=== PATIENT | male | born 1960 | race Caucasian/White ===

== ENCOUNTER 2021-11-08 07:51 | Emergency (ER) | payer BC ==
[2021-11-08] MEDS: Ondansetron 4 MG/2 ML SDV IVPUSH ONE (08:05)
[2021-11-08] MEDS: Ketorolac 30 MG/ML SDV IVPUSH ONE (08:07)
[2021-11-08] MEDS: Sodium Chloride 0.9% 500 ML IV ONE (08:26)
[2021-11-08 08:33] LABS: ANION GAP 13.4 mmol/L (5-15); CHLORIDE,CL 101 mmol/L (98-107); SODIUM,NA 137 mmol/L (136-145)
== END 2021-11-08 09:46 | disposition home or self-care (01) ==
LOC: VM.ED 07:51
DX: R10.83 Colic (principal); N20.0 Calculus of kidney; Z79.899 Other long term (current) drug therapy; Z79.82 Long term (current) use of aspirin
CPT/HCPCS: 36415; 74176; 80048; 81001; 85025; 96374; 96375; 99284; J1885; J2405; J7030

== ENCOUNTER 2021-11-10 00:13 | Emergency (ER) | payer BC ==
[2021-11-10] MEDS ORDERED: Ketorolac 30 MG/ML SDV IM ONE (00:24)
[2021-11-10] MEDS ORDERED: Promethazine 12.5 MG in Sodium Chloride 0.9% 100 ML IV ONE (00:25)
[2021-11-10] MEDS ORDERED: Take Home: Acetaminophen/oxyCODONE 325-5 MG, 5 Tab Pack PO ONE (00:25)
[2021-11-10] MEDS ORDERED: Take Home: Ondansetron 4 MG Tab.DIS, 5 Tab Pack PO ONE (00:26)
== END 2021-11-10 01:00 | disposition home or self-care (01) ==
LOC: VM.ED 00:13
DX: R10.83 Colic (principal); N20.2 Calculus of kidney with calculus of ureter; I10 Essential (primary) hypertension; Z79.899 Other long term (current) drug therapy; Z79.82 Long term (current) use of aspirin
CPT/HCPCS: 96372; 96374; 99283; A9270; J1885; J2550; J3490; Q0162

== ENCOUNTER 2022-11-25 07:35 | Inpatient (IN) | payer BC ==
[2022-11-25] MEDS ORDERED: GI Cocktail Oral Solution 30 ML PO ONE (08:09)
[2022-11-25 08:15] LABS: BASOPHILS PERCENT AUTO 0.2 % (0.2-1.2); EOSINOPHILS ABSOLUTE AUTO 0.1 x10^3/uL (0.0-0.5); EOSINOPHILS PERCENT AUTO 0.8 % (0.0-4.0); HEMATOCRIT 52.5 % (40.0-52.0); HEMOGLOBIN 18.4 g/dL (14.0-18.0); IMMATURE GRAN ABSOLUTE AUTO 0.07 x10^3/uL (0.00-0.07); LYMPHOCYTES ABSOLUTE AUTO 1.4 x10^3/uL (1.0-4.8); LYMPHOCYTES PERCENT AUTO 11.6 % (25.0-50.0); MEAN CORPUSCULAR HEMOGLOBIN 29.2 pg (26.0-32.0); MEAN CORPUSCULAR VOLUME 83.3 fL (78.0-93.0); MONOCYTES ABSOLUTE AUTO 1.1 x10^3/uL (0.0-0.8); MONOCYTES PERCENT AUTO 8.6 % (2.0-11.0); NEUTROPHILS ABSOLUTE AUTO 9.5 x10^3/uL (1.8-7.7); NEUTROPHILS PERCENT AUTO 78.2 % (50.0-80.0); PLATELET COUNT,PLT 287 x10^3/uL (130-400); WHITE BLOOD CELL COUNT,WBC 12.2 x10^3/uL (4.0-10.0)
[2022-11-25 08:25] LABS: A/G RATIO 1.08; BILIRUBIN TOTAL 1.4 mg/dL (0.2-1.0); C-REACTIVE PROTEIN 5.9 mg/dL (<=0.9); CALCIUM 9.5 mg/dL (8.5-10.1); CREATININE 1.1 mg/dL (0.70-1.30); EST CRCL DRUG DOSING (CG) 69.63 mL/min; POTASSIUM,K 4.3 mmol/L (3.5-5.1); PROTEIN TOTAL,TP 7.7 g/dL (6.4-8.2)
[2022-11-25 08:26] LABS: ANION GAP 13.3 mmol/L (5-15)
[2022-11-25] MEDS ORDERED: Iopamidol 612 MG/ML 100 ML Bottle IVPUSH ONE (08:59)
[2022-11-25 09:02] LABS: APPEARANCE,URINE CLEAR (CLEAR); BILIRUBIN,URINE NEGATIVE (NEGATIVE); COLOR,URINE DARK YELLOW (YELLOW); GLUCOSE,URINE NEGATIVE (NEGATIVE); KETONES,URINE NEGATIVE (NEGATIVE); LEUKOCYTE ESTERASE,URINE NEGATIVE (NEGATIVE); NITRITE,URINE NEGATIVE (NEGATIVE); OCCULT BLOOD,URINE TRACE-INTACT (NEGATIVE); PROTEIN,URINE TRACE mg/dL (NEGATIVE)
[2022-11-25 09:14] LABS: BACTERIA,URINE RARE /HPF (NOT SEEN); MUCUS,URINE OCCASIONAL /LPF (NOT SEEN); RBC,URINE 0-5 /HPF (NOT SEEN); WBC,URINE 0-5 /HPF (NOT SEEN)
[2022-11-25] MEDS ORDERED: HYDROmorphone 1 MG/ML Syringe IVPUSH ONE (10:21)
[2022-11-25] MEDS ORDERED: Ondansetron 4 MG/2 ML SDV IV PRN (10:23)
[2022-11-25] MEDS ORDERED: Sodium Chloride 0.9% 10 ML Syringe FLUSH PRN (10:23)
[2022-11-25] MEDS: Sodium Chloride 0.9% 1,000 ML IV SCH ×2 (11:28→20:51)
[2022-11-25] MEDS: Pantoprazole 40 MG Vial IVPUSH SCH (11:30)
[2022-11-25] MEDS: Lisinopril 20 MG Tab PO SCH (12:12)
[2022-11-25] MEDS: Loratadine 10 MG Tab PO SCH (12:12)
[2022-11-25] MEDS: Multivitamin Tab PO SCH (12:12)
[2022-11-25] MEDS: Hydrochlorothiazide 25 MG Tab PO SCH (12:12)
[2022-11-25] MEDS: Fluticasone Propionate Nasal Spray 9.9 ML BOTTLE NAS SCH (12:13)
[2022-11-25] MEDS: Aspirin 81 MG Tab.EC PO SCH (12:13)
[2022-11-25] MEDS: HYDROmorphone 1 MG/ML Syringe IVPUSH PRN ×2 (14:55→21:09)
[2022-11-26] MEDS: Sodium Chloride 0.9% 1,000 ML IV SCH (03:50)
[2022-11-26 05:07] LABS: % TRANSFERRIN SAT 9.6 % (20.0-50.0)
[2022-11-26 08:01] LABS: BASOPHILS PERCENT AUTO 0.3 % (0.2-1.2); EOSINOPHILS ABSOLUTE AUTO 0.1 x10^3/uL (0.0-0.5); EOSINOPHILS PERCENT AUTO 1.3 % (0.0-4.0); HEMATOCRIT 49.4 % (40.0-52.0); HEMOGLOBIN 17.3 g/dL (14.0-18.0); IMMATURE GRAN ABSOLUTE AUTO 0.06 x10^3/uL (0.00-0.07); LYMPHOCYTES ABSOLUTE AUTO 1.4 x10^3/uL (1.0-4.8); LYMPHOCYTES PERCENT AUTO 13.5 % (25.0-50.0); MEAN CORPUSCULAR HEMOGLOBIN 29.4 pg (26.0-32.0); MONOCYTES PERCENT AUTO 9.6 % (2.0-11.0); NEUTROPHILS ABSOLUTE AUTO 7.8 x10^3/uL (1.8-7.7); NEUTROPHILS PERCENT AUTO 74.7 % (50.0-80.0); PLATELET COUNT,PLT 244 x10^3/uL (130-400); RED BLOOD CELL COUNT 5.88 x10^6/uL (4.5-6.0); WHITE BLOOD CELL COUNT,WBC 10.4 x10^3/uL (4.0-10.0)
[2022-11-26 08:18] LABS: A/G RATIO 0.92; ALBUMIN 3.3 g/dL (3.4-5.0); BILIRUBIN TOTAL 1.4 mg/dL (0.2-1.0); CALCIUM 9.2 mg/dL (8.5-10.1); CREATININE 0.9 mg/dL (0.70-1.30); EST CRCL DRUG DOSING (CG) 85.1 mL/min; POTASSIUM,K 4.5 mmol/L (3.5-5.1); PROTEIN TOTAL,TP 6.9 g/dL (6.4-8.2)
[2022-11-26 08:29] LABS: ANION GAP 13.5 mmol/L (5-15)
[2022-11-26] MEDS: Pantoprazole 40 MG Vial IVPUSH SCH (09:30)
[2022-11-26] MEDS: Aspirin 81 MG Tab.EC PO SCH (09:31)
[2022-11-26] MEDS: Loratadine 10 MG Tab PO SCH (09:31)
[2022-11-26] MEDS: Lisinopril 20 MG Tab PO SCH (09:31)
[2022-11-26] MEDS: Multivitamin Tab PO SCH (09:31)
[2022-11-26] MEDS: Fluticasone Propionate Nasal Spray 9.9 ML BOTTLE NAS SCH (09:31)
[2022-11-26] MEDS: Hydrochlorothiazide 25 MG Tab PO SCH (09:31)
== END 2022-11-26 11:45 | disposition home or self-care (01) | DRG 282 ==
LOC: VM.ED 07:35 → SUPCPDRO 07:35 → VM.MS 09:59
PROVIDERS: ADMIT Nurse Practitioner Family; ATTEND Nurse Practitioner Family
DX: K85.90 Acute pancreatitis without necrosis or infection, unspecified (principal); E86.0 Dehydration; E78.5 Hyperlipidemia, unspecified; K21.9 Gastro-esophageal reflux disease without esophagitis; E29.1 Testicular hypofunction; D75.1 Secondary polycythemia; H91.90 Unspecified hearing loss, unspecified ear; E78.00 Pure hypercholesterolemia, unspecified; E66.9 Obesity, unspecified; Z87.442 Personal history of urinary calculi; Z98.890 Other specified postprocedural states; Z79.82 Long term (current) use of aspirin; Z68.31 Body mass index [BMI] 31.0-31.9, adult
CPT/HCPCS: 36415; 71046; 74177; 80053; 81001; 82150; 82550; 82728; 83540; 83550; 83615; 83690; 84484; 85025; 86140; 93005; 96374; 99285-25; A9270-GY; C9113; J1170; J7030; Q9967